=== PATIENT | female | born 1940 | race Caucasian/White ===

== ENCOUNTER 2024-12-28 11:26 | Inpatient (IN) ==
[2024-12-28] MEDS: cefTRIAXone SODIUM 2,000 MG/50 ML BAG IV STA (12:11)
[2024-12-28] MEDS: methylPREDNISolone 125 MG/2 ML VIAL IV STA (12:11)
[2024-12-28] MEDS: ALBUT/IPRATROP 3MG/0.5MG NEB 3 ML VIAL NEB STA (12:11)
[2024-12-28 12:12] LABS: Appearance Urine Clear (Clear); Bacteria Urine Automated None Seen (None Seen); Bilirubin Urine Negative (Negative); Blood Urine Trace (Negative); Cast Urine Automated 0-2 /lpf (0-2); Color Urine Yellow; Epithelial Cell Urine Auto 0-2 /hpf (0-2); Glucose Urine UA Negative (Negative); Ketones Urine Negative (Negative); Leukocyte Esterase Urine Negative (Negative); Nitrite Urine Negative (Negative); Protein Urine Negative (Negative); RBC Urine Automated 0-2 /hpf (0-2); Specific Gravity Urine 1.005 (1.000-1.030); Urobilinogen Urine Negative (Negative); WBC Urine Automated 0-5 /hpf (0-5); pH Urine 6.5 (4.5-7.5)
--- NOTE | 2024-12-28 12:21 | XRay Report ---
XR chest 1V portable HISTORY: 84 years-old Female Dyspnea COMPARISON: 10/16/2024 TECHNIQUE: AP view of the chest FINDINGS: Cardiomediastinal and hilar silhouettes are within normal limits. Moderate right hemidiaphragmatic el evation is progressed from prior. Suggestion of pulmonary neural hypertension. Pulmonary vascular con gestion. No pneumothorax. Right basilar opacities. IMPRESSION: 1. Pulmonary vascular congestion with possible pulmonary arterial hypertension. 2. Progressively worsening right hemidiaphragmatic elevation compared to the 10/16/2024 study with ri ght basilar consolidation/atelectasis. ACT 112: Negative or not required by law. The above report was generated using voice recognition software. It may contain grammatical, syntax o r spelling errors. Electronically signed by: Toby Whitaker M.D. 12/28/2024 12:20 PM
[2024-12-28 12:40] LABS: Basophils # (auto) 0.04 K/uL (0.00-0.20); Basophils % (auto) 0.4 %; Eosinophils # (auto) 0.01 K/uL (0.00-0.50); Eosinophils % (auto) 0.1 %; Hemoglobin 13.7 g/dl (12.0-16.0); Immature Granulocytes # (auto) 0.06 K/uL (0.01-0.20); Immature Granulocytes % (auto) 0.6 %; Lymphocytes # (auto) 0.52 K/uL (1.20-3.40); Lymphocytes % (auto) 5.2 %; Mean Corpuscular Hemoglobin 32.7 pg (25.0-34.0); Mean Corpuscular Hgb Conc 33.4 g/dL (32.0-36.0); Mean Corpuscular Volume 97.9 fL (80.0-100.0); Mean Platelet Volume 10.7 fL (9.4-12.4); Monocytes # (auto) 0.61 K/uL (0.11-0.59); Monocytes % (auto) 6.1 %; Neutrophils # (auto) 8.84 K/uL (1.40-6.50); Neutrophils % (auto) 87.6 %; Platelet Count 207 K/uL (130-400); RDW Coefficient of Variation 12.7 % (11.5-14.5); RDW Standard Deviation 45.6 fL (36.4-46.3); Red Blood Count 4.19 M/uL (4.20-5.40); White Blood Count 10.08 K/ul (4.8-10.8)
--- NOTE | 2024-12-28 12:43 | Emergency Department Note ---
Impression & Plan Respiratory distress, Pneumonia, SOB (shortness of breath), Tachypnea, Influenza A ED Provider Note NAME: CURT MCLAUGHLIN AGE: 84 SEX: F : 1940 ARRIVES VIA: Ambulance INFORMANT: [Patient][ems, nursing] ED PROVIDER(S): [Kan Pelaez MD] CHIEF COMPLAINT: Cough HISTORY OF PRESENT ILLNESS: The patient is an 84-year-old female who resides at a care center. She is a DNR and has Parkinson's. She presents with 7 to 10 days of cough and respiratory symptoms. She was sent for evaluation. Apparently, there is a viral illness running through her care center. The patient complains of cough and some shortness of breath. She denies pain. PMHx/PSHx/Social Hx: See Below PHYSICAL EXAM: GENERAL: Patient is in mild respiratory distress. HEENT: No acute trauma, normocephalic atraumatic, mucous membranes moist, no nasal congestion. NECK: No stridor, no adenopathy, no meningismus, trachea is midline. LUNGS: Coarse of breath sounds heard throughout all lung hawk. Increased respiratory rate, mild respiratory distress. HEART: Unobtainable given the lung sounds. ABDOMEN: Soft, nontender, no peritonitis. EXTREMITIES: No cyanosis, full range of motion of all the joints without pain or difficulty. NEUROLOGIC: Awake, does move all extremities. Extremity shaking seem consistent with her Parkinson's. SKIN: No jaundice, no diaphoresis. DIFFERENTIAL DIAGNOSIS: Bronchitis or pneumonia, CHF, respiratory failure, anemia, MA, among others. EMERGENCY DEPARTMENT PROCEDURES: MEDICAL DECISION MAKING: There is no leukocytosis or worrisome anemia. There is a normal platelet count. No coagulopathy. No renal failure or significant electrolyte abnormality. Lactic acid level is not elevated making severe sepsis unlikely. No worrisome liver enzyme elevation. ECG shows a sinus rhythm, no obvious ST elevation. Cardiac enzyme testing x 1 is not consistent with acute cardiac injury. Urinalysis does not show infection. Respiratory bio fire was positive for influenza A. Chest x-ray shows elevation to the right hemidiaphragm as well as a potential right lower lobe pneumonia versus atelectasis. No CHF. On exam, the patient was in some mild respiratory distress. She was quite tachypneic. She had coarse breath sounds throughout all lung hawk. The patient was aggressively managed given her presentation. She was given a DuoNeb, she received IV Solu-Medrol and IV ceftriaxone. She was given her typical dose of oral carbidopa/levodopa. With the and above interventions, the patient has made improvement. She is less tachypneic and looks more comfortable. The patient has influenza A, she appears to have a small pneumonia. She had presented in respiratory distress. She does require a hospital stay and further pulmonary care. I spoke with the patient and with case management, the on-call hospitalist was consulted. Prior/Outside records/notes reviewed: Today's EMS notes describing her presentation and transport to this hospital. ECG per my interpretation: Indication was shortness of breath. The ECG shows a sinus rhythm with a PVC. The rate is 79. There is diffuse nonspecific ST change. No ST elevation. QTc is 472. Continuous Cardiac Monitoring per my interpretation: An order was placed for continuous cardiac monitoring. The monitor shows a rate of 75 with normal sinus rhythm. Imaging/x-ray results per my interpretation: Chest x-ray shows some coarse parenchyma throughout all lung hawk, there is an elevation of the right hemidiaphragm with potential atelectasis or pneumonia at the right base. Chronic Medical/Social conditions affecting care: Advanced age, DNR status. Care/Management discussed with: Case management, the on-call hospitalist. Level of care consideration(s): After review of the information above and other included data: --I believe the patient requires escalation of care to admission Critical Care Note: I have personally spent 42 minutes of critical care time in the direct management of this patient. This includes bedside care, interpretation of diagnostic studies, and testing, discussion with consultants, patient, and family members, and other required patient management activities. This 42 minutes is in excess of all separately billable procedures. DISPOSITION: Admission Past Med/Surg History Problem List (Updated 12/28/24 @ 18:11 by Kan Pelaez MD) Influenza A (Acute) Tachypnea (Acute) SOB (shortness of breath) (Acute) Pneumonia (Acute) Respiratory distress (Acute) Pneumonia Influenza Parkinsons disease HTN (hypertension) Hyperlipidemia Tremor Health care maintenance Balance disorder Gait difficulty Hallucinations Mild cognitive impairment Dementia Neurocognitive disorder Medical History Numbness and tingling in right hand Parkinsonism Adjustment disorder Glaucoma Depression Right arm pain Memory changes Surgical History No history of previous surgery Family History Sister Breast cancer Father Myocardial infarction Denies family history of Ovarian cancer Prostate cancer Colorectal cancer Social History Smoking Status: Never smoker Second Hand Exposure: Yes; Do You Dip or Chew Tobacco: No; Hx Alcohol Use: Yes Hx Substance Use: No Preferred Language: Bahamian Visual Impairment: Partially Limited Hearing Ability: Normal Beliefs That Will Affect Care: None marital status: / Current Living Situation: Alone current occupational status: retired How many Children do You have: 3 How many Children do You have Comment: 3 daughters Feels Safe at Home: Yes Childhood Exposure to Second-Hand Smoke: Yes Diet: regular during the past year weight has: remained stable Dental Care, Regularly: No Physical Activity Frequency: Does not Exercise Seatbelt Use: always Sunscreen Use: Yes Allergies Allergies Allergy/AdvReac Type Severity Reaction Status Date / Time No Known Allergies Allergy Verified 10/16/24 14:24 Home Meds Home Medications Medication Instructions Recorded Confirmed aspirin 81 mg chewable tablet 81 mg PO DAILY 02/01/21 12/28/24 brimonidine 0.2 % eye drops 1 drp ophthalmic (eye) BID 02/01/21 12/28/24 calcium 600 mg (as carbonate)-vit 1 tab PO DAILY 02/01/21 12/28/24 D3 10 mcg (400 unit) chewable tablet (Calcium 600 with Vitamin D3) melatonin 3 mg capsule 3 mg PO HS PRN Sleep 09/12/24 12/28/24 loperamide 2 mg tablet (Imodium 2 mg PO DAILY PRN Diarrhea 10/01/24 12/28/24 A-D) carbidopa 25 mg-levodopa 100 mg 1 tab PO UD 12/28/24 12/28/24 tablet latanoprost 0.005 % eye drops 0 drp OPB HS 12/28/24 12/28/24 travoprost 0.004 % eye drops 0 drp ophthalmic (eye) QPM 12/28/24 12/28/24 (Travatan Z) Previous Rx's Medication Instructions Recorded multivitamin 1 tab PO DAILY #30 tabs 06/07/23 memantine 5 mg tablet 5 mg PO BID #60 tabs 10/16/24 potassium gluconate 550 mg (90 mg) 550 mg PO DAILY #90 tabs 10/16/24 tablet fluoxetine 20 mg tablet 30 mg (1.5 x 20 mg) PO DAILY #135 11/27/24 tabs simvastatin 20 mg tablet 20 mg PO DAILY #90 tabs 11/27/24 timolol maleate 0.5 % eye drops 1 drp OPB HS #15 mL 12/06/24 Results & Data (ED) Vital Signs Vital Signs - 24 hr 12/28/24 11:41 12/28/24 11:41 12/28/24 12:31 Temperature 36.7 C Temperature Source Oral Pulse Rate 75 72 Pulse Rate [Apical] 75 Pulse Rhythm Regular Pulse Rhythm [Apical] Regular Pulse Strength Normal Pulse Strength [Apical] Normal Respiratory Rate 30 H 30 H 22 Respiratory Effort / Characteristics Spontaneous Labored Labored Respiratory Depth Shallow Shallow Respiratory Pattern Tachypnea Tachypnea Blood Pressure 175/87 H 162/77 H Blood Pressure [Left Arm] 175/87 H Blood Pressure Mean 116 119 Blood Pressure Mean [Left Arm] 116 Blood Pressure Position [Left Arm] Sitting Pulse Oximetry 93 94 92 Oxygen Delivery Method Room Air Room Air Oxygen Flow Rate Sepsis Recent Fever Within 48 Hours No Sepsis New/Unexplained Change in Mental Status No Sepsis Action Taken by Nursing No Action Required 12/28/24 13:31 12/28/24 14:01 12/28/24 14:30 Temperature Temperature Source Pulse Rate 69 75 69 Pulse Rate [Apical] Pulse Rhythm Pulse Rhythm [Apical] Pulse Strength Pulse Strength [Apical] Respiratory Rate 24 23 22 Respiratory Effort / Characteristics Respiratory Depth Respiratory Pattern Blood Pressure 150/76 H 167/76 H 153/88 H Blood Pressure [Left Arm] Blood Pressure Mean 108 90 114 Blood Pressure Mean [Left Arm] Blood Pressure Position [Left Arm] Pulse Oximetry 94 93 94 Oxygen Delivery Method Oxygen Flow Rate 2 Sepsis Recent Fever Within 48 Hours Sepsis New/Unexplained Change in Mental Status Sepsis Action Taken by Correction Medications Current Medication List: was personally reviewed by me Laboratory Data Attestation: I reviewed the patient's lab results. 12/28/24 12:11 12/28/24 12:11 Lab Results 12/28/24 12/28/2425 Range/Units 11:33 11:55 12:11 WBC 10.08 (4.8-10.8) K/ul RBC 4.19 L (4.20-5.40) M/uL Hgb 13.7 (12.0-16.0) g/dl Hct 41.0 (37.0-47.0) % MCV 97.9 (80.0-100.0) fL MCH 32.7 (25.0-34.0) pg MCHC 33.4 (32.0-36.0) g/dL RDW Std Deviation 45.6 (36.4-46.3) fL RDW Coeff of Tuan 12.7 (11.5-14.5) % Plt Count 207 (130-400) K/uL MPV 10.7 (9.4-12.4) fL Immature Gran % (Auto) 0.6 % Neut % (Auto) 87.6 % Lymph % (Auto) 5.2 % [place] % (Auto) 6.1 % Eos % (Auto) 0.1 % Baso % (Auto) 0.4 % Neut # (Auto) 8.84 H (1.40-6.50) K/uL Lymph # (Auto) 0.52 L (1.20-3.40) K/uL [place] # (Auto) 0.61 H (0.11-0.59) K/uL Eos # (Auto) 0.01 (0.00-0.50) K/uL Baso # (Auto) 0.04 (0.00-0.20) K/uL Immature Gran # (Auto) 0.06 (0.01-0.20) K/uL PT 10.9 (9.0-12.0) Seconds INR 1.0 (0.9-1.1) APTT 27 (21-31) Seconds PTT Ratio 1.0 Sodium 139 (136-145) mmol/L Potassium 4.1 (3.5-5.1) mmol/L Chloride 103 (98-107) mmol/L Carbon Dioxide 29 (21-32) mmol/L Anion Gap 7 (3-11) BUN 15 (6-23) mg/dl Creatinine 0.55 L (0.6-1.2) mg/dl Est Cr Clr Drug Dosing 62.4 ml/min eGFR 91.46 BUN/Creatinine Ratio 27.3 H (10-20) Glucose 99 (70-99(Fasting)) mg/dl Lactate 1.6 (0.4-2.0) mmol/L Calcium 9.9 (8.6-10.3) mg/dl Magnesium 2.0 (1.7-2.4) mg/dl Total Bilirubin 1.2 H (0.2-1.0) mg/dl AST 20 (13-39) U/L ALT 9 (7-52) U/L Alkaline Phosphatase 83 (34-104) U/L Troponin I High Sens 7.6 (0-14) pg/ml Total Protein 7.5 (6.0-8.3) gm/dl Albumin 4.1 (3.4-5.0) gm/dl Globulin 3.4 (2.5-4.0) gm/dl Albumin/Globulin Ratio 1.2 (0.9-2) Procalcitonin (0-0.5) ng/ml Urine Color Yellow Urine Appearance Clear (Clear) Urine pH 6.5 (4.5-7.5) Ur Specific [place] 1.005 (1.000-1.030) Urine Protein Negative (Negative) Urine Glucose (UA) Negative (Negative) Urine Ketones Negative (Negative) Urine Blood Trace H (Negative) Urine Nitrite Negative (Negative) Urine Bilirubin Negative (Negative) Urine Urobilinogen Negative (Negative) Ur Leukocyte Esterase Negative (Negative) Urine WBC (Auto) 0-5 (0-5) /hpf Urine RBC (Auto) 0-2 (0-2) /hpf U Hyaline Cast (Auto) 0-2 (0-2) /lpf U Epithel Cells (Auto) 0-2 (0-2) /hpf Urine Bacteria (Auto) None Seen (None Seen) Adenovirus (PCR) Not Detected (NotDetected) B. pertussis DNA (PCR) Not Detected (NotDetected) B.parapertussis DNA PCR Not Detected (NotDetected) C. pneumoniae DNA (PCR) Not Detected (NotDetected) Coronavirus OC43 (PCR) Not Detected (NotDetected) Coronavirus HKU1 (PCR) Not Detected (NotDetected) Coronavirus 229E (PCR) Not Detected (NotDetected) SARS-CoV-2 (PCR) Not Detected (NotDetected) Coronavirus NL63 (PCR) Not Detected (NotDetected) Human Metapneumovir PCR Not Detected (NotDetected) Influenza A (H3) PCR DETECTED A (NotDetected) Influenza Type B (PCR) Not Detected (NotDetected) M. pneumoniae (PCR) Not Detected (NotDetected) Parainfluenza 1 (PCR) Not Detected (NotDetected) Parainfluenza 2 (PCR) Not Detected (NotDetected) Parainfluenza 3 (PCR) Not Detected (NotDetected) Parainfluenza 4 (PCR) Not Detected (NotDetected) RSV (PCR) Not Detected (NotDetected) Entero/Rhino (PCR) Not Detected (NotDetected) 12/28/24 Range/Units 12:13 WBC (4.8-10.8) K/ul RBC (4.20-5.40) M/uL Hgb (12.0-16.0) g/dl Hct (37.0-47.0) % MCV (80.0-100.0) fL MCH (25.0-34.0) pg MCHC (32.0-36.0) g/dL RDW Std Deviation (36.4-46.3) fL RDW Coeff of Tuan (11.5-14.5) % Plt Count (130-400) K/uL MPV (9.4-12.4) fL Immature Gran % (Auto) % Neut % (Auto) % Lymph % (Auto) % [place] % (Auto) % Eos % (Auto) % Baso % (Auto) % Neut # (Auto) (1.40-6.50) K/uL Lymph # (Auto) (1.20-3.40) K/uL [place] # (Auto) (0.11-0.59) K/uL Eos # (Auto) (0.00-0.50) K/uL Baso # (Auto) (0.00-0.20) K/uL Immature Gran # (Auto) (0.01-0.20) K/uL PT (9.0-12.0) Seconds INR (0.9-1.1) APTT (21-31) Seconds PTT Ratio Sodium (136-145) mmol/L Potassium (3.5-5.1) mmol/L Chloride (98-107) mmol/L Carbon Dioxide (21-32) mmol/L Anion Gap (3-11) BUN (6-23) mg/dl Creatinine (0.6-1.2) mg/dl Est Cr Clr Drug Dosing ml/min eGFR BUN/Creatinine Ratio (10-20) Glucose (70-99(Fasting)) mg/dl Lactate (0.4-2.0) mmol/L Calcium (8.6-10.3) mg/dl Magnesium (1.7-2.4) mg/dl Total Bilirubin (0.2-1.0) mg/dl AST (13-39) U/L ALT (7-52) U/L Alkaline Phosphatase (34-104) U/L Troponin I High Sens (0-14) pg/ml Total Protein (6.0-8.3) gm/dl Albumin (3.4-5.0) gm/dl Globulin (2.5-4.0) gm/dl Albumin/Globulin Ratio (0.9-2) Procalcitonin 0.08 (0-0.5) ng/ml Urine Color Urine Appearance (Clear) Urine pH (4.5-7.5) Ur Specific [place] (1.000-1.030) Urine Protein (Negative) Urine Glucose (UA) (Negative) Urine Ketones (Negative) Urine Blood (Negative) Urine Nitrite (Negative) Urine Bilirubin (Negative) Urine Urobilinogen (Negative) Ur Leukocyte Esterase (Negative) Urine WBC (Auto) (0-5) /hpf Urine RBC (Auto) (0-2) /hpf U Hyaline Cast (Auto) (0-2) /lpf U Epithel Cells (Auto) (0-2) /hpf Urine Bacteria (Auto) (None Seen) Adenovirus (PCR) (NotDetected) B. pertussis DNA (PCR) (NotDetected) B.parapertussis DNA PCR (NotDetected) C. pneumoniae DNA (PCR) (NotDetected) Coronavirus OC43 (PCR) (NotDetected) Coronavirus HKU1 (PCR) (NotDetected) Coronavirus 229E (PCR) (NotDetected) SARS-CoV-2 (PCR) (NotDetected) Coronavirus NL63 (PCR) (NotDetected) Human Metapneumovir PCR (NotDetected) Influenza A (H3) PCR (NotDetected) Influenza Type B (PCR) (NotDetected) M. pneumoniae (PCR) (NotDetected) Parainfluenza 1 (PCR) (NotDetected) Parainfluenza 2 (PCR) (NotDetected) Parainfluenza 3 (PCR) (NotDetected) Parainfluenza 4 (PCR) (NotDetected) RSV (PCR) (NotDetected) Entero/Rhino (PCR) (NotDetected) Administered Medications Discontinued Medications Albuterol (Albut/Ipratrop 3mg/0.5mg Neb 3 Ml Vial) 3 ml NEB NOW STA; Protocol Stop: 12/28/24 11:59 Last Admin: 12/28/24 12:11 Dose: 3 ml Documented By: QGV Carbidopa/Levodopa (Carbidopa/Levodopa 25/100mg Tab) 1 tab PO NOW STA Stop: 12/28/24 13:24 Last Admin: 12/28/24 13:37 Dose: 1 tab Documented By: QGV Ceftriaxone Sodium (Rocephin) 2,000 mg in 50 mls @ 100 mls/hr IV NOW STA Stop: 12/28/24 12:27 Last Infusion: 12/28/24 13:03 Dose: Infused Documented By: Admin: 12/28/24 12:11 Dose: 100 mls/hr Documented By: QGV Doxycycline Hyclate 100 mg/ (Dextrose) 100 mls @ 50 mls/hr IV NOW STA Stop: 12/28/24 16:39 Last Infusion: 12/28/24 17:34 Dose: Infused Documented By: Admin: 12/28/24 15:34 Dose: 50 mls/hr Documented By: QGV Methylprednisolone (Methylprednisolone 125 Mg/2 Ml Vial) 60 mg IV NOW STA Stop: 12/28/24 11:59 Last Admin: 12/28/24 12:11 Dose: 60 mg Documented By: QGV Oseltamivir Phosphate (Oseltamivir Phosphate 75 Mg Cap) 75 mg PO NOW STA; Protocol Stop: 12/28/24 14:41 Last Admin: 12/28/24 15:34 Dose: 75 mg Documented By: QGV Imaging Data Radiologist's Impression: Chest X-Ray 12/28/24 11:41 XR chest 1V portable HISTORY: 84 years-old Female Dyspnea COMPARISON: 10/16/2024 TECHNIQUE: AP view of the chest FINDINGS: Cardiomediastinal and hilar silhouettes are within normal limits. Moderate right hemidiaphragmatic elevation is progressed from prior. Suggestion of pulmonary neural hypertension. Pulmonary vascular congestion. No pneumothorax. Right basilar opacities. IMPRESSION: 1. Pulmonary vascular congestion with possible pulmonary arterial hypertension. 2. Progressively worsening right hemidiaphragmatic elevation compared to the 10/16/2024 study with right basilar consolidation/atelectasis. ACT 112: Negative or not required by law. The above report was generated using voice recognition software. It may contain grammatical, syntax or spelling errors. Electronically signed by: Toby Whitaker M.D. 12/28/2024 12:20 PM Discharge Plan Visit Data Chief Complaint: Cough Stated Complaint: COUGH, SHORT OF BREATH ED Provider: Kan Pelaez Discharge Problem: Respiratory distress, Pneumonia, SOB (shortness of breath), Tachypnea, Influenza A Patient Disposition: Admitted As Inpatient Condition: Serious Discharge Instructions Interventions: ED Discharge Assessment Last Done: 12/28/24 15:46 Discharge Problem: Pneumonia Qualifiers: Pneumonia type: due to unspecified organism Laterality: right Lung location: l ower lobe of lung Qualified Code(s): J18.9 - Pneumonia, unspecified organism
[2024-12-28 12:46] LABS: Albumin Globulin Ratio 1.2 (0.9-2); Albumin Level 4.1 gm/dl (3.4-5.0); BUN Creatinine Ratio 27.3 (10-20); Bilirubin,Total 1.2 mg/dl (0.2-1.0); Calcium 9.9 mg/dl (8.6-10.3); Creatinine Clr Calc Pharmacy 62.4 ml/min; Globulin 3.4 gm/dl (2.5-4.0); Potassium 4.1 mmol/L (3.5-5.1); Total Protein 7.5 gm/dl (6.0-8.3)
[2024-12-28 12:53] LABS: Troponin I High Sensitivity 7.6 pg/ml (0-14)
[2024-12-28 12:56] LABS: Partial Thromboplastin Time 27 Seconds (21-31); Prothrombin Time 10.9 Seconds (9.0-12.0)
[2024-12-28 13:03] LABS: Adenovirus PCR Not Detected (NotDetected); Bordetella parapertussis PCR Not Detected (NotDetected); Bordetella pertussis PCR Not Detected (NotDetected); Chlamydia pneumoniae PCR Not Detected (NotDetected); Coronavirus 229E PCR Not Detected (NotDetected); Coronavirus CoV-2 (COVID19)PCR Not Detected (NotDetected); Coronavirus HKU1 PCR Not Detected (NotDetected); Coronavirus NL63 PCR Not Detected (NotDetected); Coronavirus OC43PCR Not Detected (NotDetected); Human Metapneumovirus PCR Not Detected (NotDetected); Influenza A (H3) PCR DETECTED (NotDetected); Influenza B PCR Not Detected (NotDetected); Mycoplasma pneumoniae PCR Not Detected (NotDetected); Parainfluenza Virus 1 PCR Not Detected (NotDetected); Parainfluenza Virus 2 PCR Not Detected (NotDetected); Parainfluenza Virus 3 PCR Not Detected (NotDetected); Parainfluenza Virus 4 PCR Not Detected (NotDetected); Respiratory Syncytial VirusPCR Not Detected (NotDetected); Rhinovirus/Enterovirus PCR Not Detected (NotDetected)
[2024-12-28] MEDS: CARBIDOPA/LEVODOPA 25/100MG TAB PO STA (13:37)
[2024-12-28] MEDS ORDERED: ACETAMINOPHEN 325 MG TAB PO PRN (14:40)
[2024-12-28] MEDS ORDERED: ONDANSETRON INJ 2 MG/ML 2 ML VIAL IV PRN (14:40)
[2024-12-28] MEDS ORDERED: POLYETHYLENE (MIRALAX) 17 GM PACK PO PRN (14:40)
--- NOTE | 2024-12-28 14:55 | History & Physical Report ---
Date of Service December 28, 2024 Assessment & Plan (1) Influenza: (2) Pneumonia: (3) Parkinsons disease: Plan This is an 84 year old female with past medical history of Parkinson's disease, dementia, HTN, gait difficulty who presented to the ED from [facility] on 12/28 with chief complaint of cough. #Flu A/pneumonia Biofire + for influenza A CXR concerning for pneumonia EKG w/ normal sinus rhythm CBC w/o leukocytosis. BMP w/ stable renal function and electrolytes Urinalysis negative Procalcitonin 0.08, BC pending s/p IV Rocephin in ED - continue upon admission, add Doxycycline s/p Methylprednisolone x 1 Hypertonic saline nebs BID Tamiflu BID on 2L of oxygen at time of admission - wean when possible back to room air. Isolation precautions #Parkinson's disease Continue carbidopa 25mg levodopa 100mg Fall/Aspiration precautions. PT/OT consult Chronic conditions: Mental health: Fluoxetine HLD: statin Dementia: Memantine DVT prophylaxis: Lovenox Code: DNR/DNI Case discussed w/ Dr. Hays at time of admission Daughter called to discuss plan of care at time of admission. History of Present Illness Primary Care Provider: Yasmine Conley MD This is an 84 year old female with past medical history of Parkinson's disease, dementia, HTN, gait difficulty who presented to the ED from [facility] on 12/28 with chief complaint of cough. Patient seen and examined at bedside. Patient is poor historian at baseline. Reportedly patient was experiencing a cough over the last 7-10 days. Also per documentation there is a flu outbreak at her home. At time of encounter she was resting comfortable in bed. Due to Parkinson's, pulse ox was difficult to obtain in ED but patient was ~ 88% on room air at time of my encounter. She was given 2L of oxygen with improvement to 93%. She reports she cannot take a deep breath. While in the ED, respiratory biofire + for Flu A. CXR w/ concerning findings for pneumonia per personal review. Rocephin, Methylprednisolone, Sinemet, and Duoneb administered in ED. CBC w/o leukocytosis. Procalcitonin and BC pending. BMP w/ stable electrolytes and kidney function. Per chart, patient is a DNR/DNI. Allergies Allergy/AdvReac Type Severity Reaction Status Date / Time No Known Allergies Allergy Verified 10/16/24 14:24 Home Medications Medication Instructions Recorded Confirmed Type aspirin 81 mg chewable tablet 81 mg PO DAILY 02/01/21 12/28/24 History brimonidine 0.2 % eye drops 1 drp ophthalmic (eye) BID 02/01/21 12/28/24 History calcium 600 mg (as carbonate)-vit 1 tab PO DAILY 02/01/21 12/28/24 History D3 10 mcg (400 unit) chewable tablet (Calcium 600 with Vitamin D3) multivitamin 1 tab PO DAILY #30 tabs 06/07/23 12/28/24 Rx melatonin 3 mg capsule 3 mg PO HS PRN Sleep 09/12/24 12/28/24 History loperamide 2 mg tablet (Imodium 2 mg PO DAILY PRN Diarrhea 10/01/24 12/28/24 History A-D) memantine 5 mg tablet 5 mg PO BID #60 tabs 10/16/24 12/28/24 Rx potassium gluconate 550 mg (90 mg) 550 mg PO DAILY #90 tabs 10/16/24 12/28/24 Rx tablet fluoxetine 20 mg tablet 30 mg (1.5 x 20 mg) PO DAILY #135 11/27/24 12/28/24 Rx tabs simvastatin 20 mg tablet 20 mg PO DAILY #90 tabs 11/27/24 12/28/24 Rx timolol maleate 0.5 % eye drops 1 drp OPB HS #15 mL 12/06/24 12/28/24 Rx carbidopa 25 mg-levodopa 100 mg 1 tab PO UD 12/28/24 12/28/24 History tablet latanoprost 0.005 % eye drops 0 drp OPB HS 12/28/24 12/28/24 History travoprost 0.004 % eye drops 0 drp ophthalmic (eye) QPM 12/28/24 12/28/24 History (Travatan Z) amoxicillin 875 mg-potassium 1 tab PO BID #4 tabs 01/01/25 Rx clavulanate 125 mg tablet benzonatate 100 mg capsule 100 mg PO BID PRN cough #14 caps 01/01/25 Rx doxycycline hyclate 100 mg tablet 100 mg PO BID #4 tabs 01/01/25 Rx Past Med/Surg History Problem List (Updated 01/01/25 @ 09:04 by Adelina Blanton PA-C) Influenza A (Acute) Tachypnea (Acute) SOB (shortness of breath) (Acute) Pneumonia (Acute) Respiratory distress (Acute) Pneumonia Influenza Parkinsons disease HTN (hypertension) Hyperlipidemia Tremor Health care maintenance Balance disorder Gait difficulty Hallucinations Mild cognitive impairment Dementia Neurocognitive disorder Medical History Numbness and tingling in right hand Parkinsonism Adjustment disorder Glaucoma Depression Right arm pain Memory changes Surgical History No history of previous surgery Family History Sister Breast cancer Father Myocardial infarction Denies family history of Ovarian cancer Prostate cancer Colorectal cancer Social History Smoking Status: Never smoker Second Hand Exposure: Yes; Do You Dip or Chew Tobacco: No; Hx Alcohol Use: No Hx Substance Use: No Preferred Language: Italian Communication Ability: Effective Visual Impairment: Partially Limited Hearing Ability: Normal Rubber Mixer Required: No Beliefs That Will Affect Care: None marital status: / Current Living Situation: Personal Care Facility current occupational status: retired How many Children do You have: 3 How many Children do You have Comment: 3 daughters Feels Safe at Home: Yes Childhood Exposure to Second-Hand Smoke: Yes Diet: regular during the past year weight has: remained stable Dental Care, Regularly: No Physical Activity Frequency: Does not Exercise Seatbelt Use: always Sunscreen Use: Yes Assistive Devices: Glasses and Walker Physical Exam Constitutional: well developed Eyes: PERRL, conjunctivae normal, anicteric sclerae Respiratory: coarse breath sounds, diminished at b/l lung bases Cardiovascular: RR. no edema Skin: no rashes, warm and dry Neurologic: tremors present. moves all extremities Results & Data Results & Data Vital Signs (Past 12 Hours) Vital Signs Temp Pulse Pulse Resp BP BP Pulse Ox 12/28/24 11:41 75 30 H 175/87 H 94 12/28/24 11:41 36.7 C 75 30 H 175/87 H 93 O2 Del Method 12/28/24 11:41 Room Air 12/28/24 11:41 Room Air Code Status & VTE Plan VTE Prophylaxis Plan VTE Prophylaxis will be ordered: Yes Supervising Physician Co-Signing Physician Notes I personally saw and examined the patient. I independently reviewed the labs, EKG, imaging, problem list, medication list, past medical history and family history. I verified all wilson points and agree with Julia Sawant PA-C with the following exceptions and/or additions: 84 year old female presents to the ER with non productive cough and generalized illness for last 7-10 days. O/E Bilateral rhonchi throughout, HS RRR, no pedal edema A/P Influenza with superimposed pneumonia - tamiflu, bacterial pneumonia based on CXR, Ceftriaxone + doxycycline PG Care Time/CCT Total # of Minutes Spent Total Time Spent with Patient: Total time spent is greater than 50% in coordination of care (as documented) at patient's floor/unit and/or counseling patient: Coding Level of Care Code 49995 INT INP/OBS CARE 2/55MIN Diagnoses Influenza J11.1 Pneumonia J18.9 Parkinsons disease G20
[2024-12-28] MEDS: DOXYCYCLINE HYCLATE 100 MG in DEXTROSE 5% MINI-B 100 ML IV STA (15:34)
[2024-12-28] MEDS: OSELTAMIVIR PHOSPHATE 75 MG CAP PO STA (15:34)
[2024-12-28] MEDS ORDERED: LOPERAMIDE HCL 2 MG CAP PO PRN (16:54)
[2024-12-28] MEDS ORDERED: MELATONIN 3 MG TAB PO PRN (16:54)
[2024-12-28] MEDS: BRIMONIDINE TARTRATE 0.2% 5ML OP SCH (20:16)
[2024-12-28] MEDS: BENZONATATE 100 MG CAPSULE PO PRN (20:16)
[2024-12-28] MEDS: TIMOLOL MALEATE 0.5% OP SOLN 5 ML BTL OP SCH (20:16)
[2024-12-28] MEDS: CARBIDOPA/LEVODOPA 25/100MG TAB PO SCH (20:16)
[2024-12-28] MEDS: MEMANTINE HCL 5 MG TAB PO SCH (20:17)
[2024-12-28] MEDS: LATANOPROST 0.005% OP SOLN 2.5 ML BTL OPB SCH (20:17)
[2024-12-28] MEDS: ENOXAPARIN INJ 40 MG/0.4 ML SYR SQ SCH (20:17)
[2024-12-28] MEDS: SODIUM CHLOR 7% 4 ML NEB NEB SCH (20:52)
[2024-12-28] MEDS ORDERED: TRAVOPROST Z 0.004% OPH SOLN 2.5 ML BTL OP SCH (21:00)
[2024-12-28] MEDS: guaiFENesin 600 MG TABCR PO PRN (21:13)
[2024-12-28] MEDS: OSELTAMIVIR PHOSPHATE 75 MG CAP PO SCH (22:45)
[2024-12-28] MEDS: guaiFENesin 600 MG TABCR PO ONE (22:46)
[2024-12-29] MEDS: ALBUT/IPRATROP 3MG/0.5MG NEB 3 ML VIAL NEB SCH (01:02)
[2024-12-29] MEDS: DOXYCYCLINE HYCLATE 100 MG in DEXTROSE 5% MINI-B 100 ML IV SCH (05:27)
--- NOTE | 2024-12-29 07:44 | Hospitalist Progress Note ---
Date of Service December 29, 2024 Assessment & Plan (1) Influenza: (2) Pneumonia: (3) Parkinsons disease: Plan This is an 84 year old female with past medical history of Parkinson's disease, dementia, HTN, gait difficulty who presented to the ED from [facility] on 12/28 with chief complaint of cough. +Influenza A on viral testing. No leukocytosis on admission but notable WBC was 10K w/ LEFT shift on CBC. Procal 0.08. EKG w/ NSR, Given Ceftriaxone, Methylprednisolone in ER and admission for Flu/PNA given CXR w/ concerns for RIGHT basilar consolidation/atelectasis. On 2L NC at admission to maintain sats #Flu A/pneumonia Continue Ceftriaxone/Doxy. Tamiflu BID Isolation precautions WBC 10k--> 8.1k. Afebrile Blood cultures pending, f/u DuoNeb q6h scheduled (monitor to change to prn) Added/continue incentive spirometer, flutter valve, mucinex BID, hypertonic saline, vibration therapy No ongoing steroids for now, monitor Repeat C2V given prior w/ pulmonary vascular congestion and O2 requirement to 2.5L-3L for today and +JVD on exam with rales. Checked BNP and ELEVATED to 308/no prior ECHO but +murmur on exam (no LE pitting edema, no hx HF reported) ECHO added, f/u to eval for valvular disease/decreased EF Lasix 40mg PO x 1 Monitor I&O, weight Supplemental O2 to maintain sats PT/OT consults pending DVT proph: Lovenox SQ Monitor for 2 step prior to dc #Pulmonary vascular congestion/hypoxia/Volume overload suspected on cxr, no hx CHF. ?mucus plugging vs CHF. BNP checked/elevated and lasix PO provided and titrate O2 as able. Monitor I&O/weights and checking ECHO given no prior for comparison #Parkinson's disease Continue carbidopa 25mg levodopa 100mg . Memantine continued for hx dementia, fluoxetine for mental health Fall/Aspiration precautions, therapy consulted as above Chronic conditions: HLD: statin continued. Notable UA w/ trace blood but no RBC --> on statin, CK checked/NOT elevated at 74. Will need f/u UA at dc DVT prophylaxis: Lovenox SQ continued Dispo: continued inpatient stay, lasix PO/monitor response/additional dosing as needed pending response. Remains on abx and supplemental O2 as needed. PT/OT consulted and will plan to update family in AM/sooner if needed (No one in room during encounter) Admission and Anticipated Discharge Date Admission Date: December 28, 2024 Supervising Physician Co-Signing Physician Notes The patient was not seen by me. The chart was reviewed. Case discussed with SIS Post. Agree with assessment and plan Subjective Eval this morning, working with therapy, ambulating with walker back from bathroom, on 3L NC. Reports having been better, but not as bad as admission. No LE edema or gut edema but does have +JVD on exam and rales/wheezing and discussed CXR appears w/ fluid and hopefully improvement with diuretics but will monitor response. Nursing alerted for purewick as needed w/ diuretics, will start with lasix 40mg Does need assistance with meals at present, reports typically does her own thing at baseline. Tremor w/ her parkisons, reports "trying to cooperate". No CP/fever at this time, reports appetite is FAIR. Questions/concerns addressed at this time. Physical Exam 2 Physical Exam: General: 84yo female ambulating back from bathroom with therapy with a walker, NAD, O2 2-3L in place, shuffled gait c/w hx parkisons HEENT: head atraumatic, normocephalic, mmm, trachea midline, +JVD upright in chair Resp: coarse breath sounds throughout, expiratory wheezing, diminished in the bases R>L, on 2-3L NC this morning CV: RRR, +systolic murmur, no pitting edema, pulses present, calves nontender GI: +BS, soft/NT : no rosas MSK/Neuro: no slurred speech/facial droop, cooperative with exam, moves all extremities, ambulating from the bathroom to the chair w/ slow/steady but shuffled gait, baseline tremor Psych: Alert to person/place/time, intermittent confusion/hx dementia at baseline Results & Data Results & Data Vital Signs (Past 12 Hours) Vital Signs Temp Pulse Pulse Pulse Resp BP BP 12/29/24 07:35 66 19 12/29/24 07:27 37.1 C 69 18 177/94 H 12/29/24 07:13 64 12/29/24 06:15 12/29/24 04:00 12/29/24 03:14 37.1 C 65 18 163/81 H 12/29/24 02:13 12/29/24 01:03 12/29/24 01:03 68 18 12/28/24 23:22 37.1 C 67 22 167/81 H 12/28/24 22:51 12/28/24 21:45 69 12/28/24 20:53 77 18 12/28/24 20:00 Pulse Ox Pulse Ox O2 Del Method O2 Del Method O2 Flow Rate O2 Flow Rate 12/29/24 07:35 96 Nasal Cannula 2.5 12/29/24 07:27 95 Nasal Cannula 2 12/29/24 07:13 12/29/24 06:15 94 Nasal Cannula 2 12/29/24 04:00 94 Nasal Cannula 2 12/29/24 03:14 95 Nasal Cannula 2 12/29/24 02:13 95 Nasal Cannula 2 12/29/24 01:03 91 Nasal Cannula 2 12/29/24 01:03 92 Nasal Cannula 2 12/28/24 23:22 95 Nasal Cannula 2 12/28/24 22:51 93 Nasal Cannula 2 12/28/24 21:45 12/28/24 20:53 91 Nasal Cannula 2 12/28/24 20:00 Nasal Cannula Laboratory Results 12/29/24 06:58 12/29/24 06:58 BNP 308 CK 74 Mag 2.1 Diagnostic Findings Chest X-Ray 12/29/24 07:43 XR chest 2V PA/lateral HISTORY: 84 years-old Female f/u pulmonary congestion, hypoxia, O2 requirement COMPARISON: Chest 12/28/2024 TECHNIQUE: AP and lateral views of the chest FINDINGS: Cardiac silhouette is enlarged. Unchanged right hemidiaphragmatic elevation. Possible pulmonary arterial hypertension. Pulmonary vascular congestion. Mild bibasilar densities. Trace pleural effusions. No pneumothorax. Gaseous distention of the large bowel. Bones appear grossly intact. IMPRESSION: 1. Cardiomegaly with pulmonary vascular congestion. 2. Unchanged right hemidiaphragmatic elevation with probable trace pleural effusions and bibasilar densities/atelectasis. ACT 112: Negative or not required by law. The above report was generated using voice recognition software. It may contain grammatical, syntax or spelling errors. Electronically signed by: Toby Whitaker M.D. 12/29/2024 9:33 AM PG Care Time/CCT Total # of Minutes Spent Total Time Spent with Patient: Total time spent is greater than 50% in coordination of care (as documented) at patient's floor/unit and/or counseling patient: Coding Level of Care Code 72534 SUB INP/OBS CARE 3/50MIN Diagnoses Influenza J11.1 Pneumonia J18.9 Parkinsons disease G20
[2024-12-29 08:02] LABS: Hematocrit (blood only) 41.8 % (37.0-47.0); Mean Corpuscular Hemoglobin 32.6 pg (25.0-34.0); Mean Corpuscular Hgb Conc 33.5 g/dL (32.0-36.0); Mean Corpuscular Volume 97.4 fL (80.0-100.0); Mean Platelet Volume 11.1 fL (9.4-12.4); Platelet Count 203 K/uL (130-400); RDW Coefficient of Variation 12.6 % (11.5-14.5); RDW Standard Deviation 45.2 fL (36.4-46.3); Red Blood Count 4.29 M/uL (4.20-5.40); White Blood Count 8.16 K/ul (4.8-10.8)
[2024-12-29 08:17] LABS: BUN Creatinine Ratio 35.2 (10-20); Calcium 9.8 mg/dl (8.6-10.3); Creatinine Clr Calc Pharmacy 63.5 ml/min; Potassium 3.9 mmol/L (3.5-5.1)
[2024-12-29] MEDS: guaiFENesin 600 MG TABCR PO SCH (08:20)
[2024-12-29] MEDS: FLUoxetine HCL 10 MG CAP PO SCH (08:21)
[2024-12-29] MEDS: CARBIDOPA/LEVODOPA 25/100MG TAB PO SCH (08:24)
[2024-12-29] MEDS: ASPIRIN 81 MG CHEW PO SCH (08:26)
[2024-12-29] MEDS: SIMVASTATIN 20 MG TAB PO SCH (08:28)
[2024-12-29 08:46] LABS: Magnesium 2.1 mg/dl (1.7-2.4)
--- NOTE | 2024-12-29 09:34 | XRay Report ---
XR chest 2V PA/lateral HISTORY: 84 years-old Female f/u pulmonary congestion, hypoxia, O2 requirement COMPARISON: Chest 12/28/2024 TECHNIQUE: AP and lateral views of the chest FINDINGS: Cardiac silhouette is enlarged. Unchanged right hemidiaphragmatic elevation. Possible pulmonary arter ial hypertension. Pulmonary vascular congestion. Mild bibasilar densities. Trace pleural effusions. N o pneumothorax. Gaseous distention of the large bowel. Bones appear grossly intact. IMPRESSION: 1. Cardiomegaly with pulmonary vascular congestion. 2. Unchanged right hemidiaphragmatic elevation with probable trace pleural effusions and bibasilar de nsities/atelectasis. ACT 112: Negative or not required by law. The above report was generated using voice recognition software. It may contain grammatical, syntax o r spelling errors. Electronically signed by: Toby Whitaker M.D. 12/29/2024 9:33 AM
[2024-12-29] MEDS: FUROSEMIDE 20 MG TAB PO ONE ×3 (10:57→18:21)
[2024-12-29] MEDS: cefTRIAXone SODIUM 2,000 MG/50 ML BAG IV SCH (12:30)
[2024-12-29] MEDS: POTASSIUM CHLORIDE CRTAB 20 MEQ TABCR PO STA (15:20)
[2024-12-29] MEDS: POTASSIUM CHLORIDE CRTAB 20 MEQ TABCR PO ONE (18:21)
--- NOTE | 2024-12-29 20:41 | XCELERA ---
[id number] \\[id number]\[id number]
--- NOTE | 2024-12-30 08:27 | Hospitalist Progress Note ---
Date of Service December 30, 2024 Assessment & Plan (1) Influenza: (2) Pneumonia: (3) Parkinsons disease: Plan This is an 84 year old female with past medical history of Parkinson's disease, dementia, HTN, gait difficulty who presented to the ED from [facility] on 12/28 with chief complaint of cough. +Influenza A on viral testing. No leukocytosis on admission but notable WBC was 10K w/ LEFT shift on CBC. Procal 0.08. EKG w/ NSR, Given Ceftriaxone, Methylprednisolone in ER and admission for Flu/PNA given CXR w/ concerns for RIGHT basilar consolidation/atelectasis. On 2L NC at admission to maintain sats #Flu A/pneumonia IMPROVING. Isolation precautions Tamiflu reduced to 30mg BID per renal function Continues on Ceftriaxone/Doxy for superimposed bacterial infection/PNA WBC normalized, afebrile Blood cx NGTD Duonebs made prn, continue incentive spirometer, flutter valve, mucinex, hypertonic saline, vibration vest. No steroids, resolution in wheezing with lasix 40mg PO + 20mg PO x 1 on 12/29 for elevated BNP to 308 without prior for comparison, no hx CHF or echo for comparison ECHO w/o significant valvular disease/less JVD on exam. Defer ongoing diuretics but will monitor volume status/keep dry. C2V w/ no further pulmonary vascular congestion. 96% on RA ?2step prior to dc. PT/OT negro, from [facility]. Hopeful dc in AM on PO abx/Tamiflu to complete course as long as blood cx remain NGTD. Updated daughter via phone 12/29, voicemail left for today. DVT proph: Lovenox sq #Parkinson's disease Continue carbidopa 25mg levodopa 100mg . Memantine continued for hx dementia, fluoxetine for mental health Fall/Aspiration precautions, therapy consulted as above and hopefully able to dc back to [facility]. CM to follow Chronic conditions: HLD: statin continued. Notable UA w/ trace blood but no RBC --> on statin, CK checked/NOT elevated at 74. Will need f/u UA at dc DVT prophylaxis: Lovenox SQ continued Dispo: continued inpatient stay, abx/tamiflu/breathing tx as outlined. Hopeful dc 12/31 back to [facility] Voicemail for daughter Gris 12/29 (works at school, available after 345pm if needed, asked to call with any questions/concerns). Message to CM sent to f/u on PT/OT evals to ensure able to return to prior level of living at [facility] as desired. Admission and Anticipated Discharge Date Admission Date: December 28, 2024 Supervising Physician Co-Signing Physician Notes The patient was not seen by me. The chart was reviewed. Case discussed with SIS Post. Agree with assessment and plan Subjective EVal this morning , feeling much better. Less congestion, suction w/ RT, continues breathing treatment/abx. Less wheezing/resolution in pulm vascular congestion w/ diuretics. Urine slightly dark today- defer ongoing diuretics. Continue PT/OT. Better appetite/able to feed self today. Will call daughter Gris w/ update -- voicemail left. Hopeful dc in AM back to [facility]. Physical Exam 2 Physical Exam: General: 84yo female sitting up in chair, appears much improved, on room air, less cough HEENT: head atraumatic, normocephalic, mmm, trachea midline, no further significant JVD Resp: improvement in air entry bilaterally, faint bibasilar crackles but no further wheezing, on ROOM AIR CV: RRR, no pitting edema, pulses present, calves nontender GI: +BS, soft/NT : no rosas MSK/Neuro: no slurred speech/facial droop, cooperative with exam, moves all extremities, tremor stable/improved Psych: Alert to person/place/time, intermittent confusion/hx dementia at baseline Results & Data Results & Data Vital Signs (Past 12 Hours) Vital Signs Temp Pulse Pulse Resp BP BP Pulse Ox 12/30/24 07:47 69 18 91 12/30/24 07:32 63 12/30/24 03:10 36.5 C 74 18 122/65 92 12/30/24 00:10 80 18 93 12/29/24 23:00 85 12/29/24 20:30 37.1 C 94 H 22 137/72 94 O2 Del Method 12/30/24 07:47 Room Air 12/30/24 07:32 12/30/24 03:10 Room Air 12/30/24 00:10 Room Air 12/29/24 23:00 12/29/24 20:30 Room Air Laboratory Results 12/30/24 07:54 12/30/24 07:54 Mag 1.9 TSH 1.309 Diagnostic Findings Chest X-Ray 12/30/24 07:00 XR chest 2V PA/lateral CLINICAL HISTORY: f/u pulmonary vascular congestion/pna COMPARISON STUDY: Chest radiograph December 29, 2024. FINDINGS: Elevation of the right hemidiaphragm is again noted. There is no pneumothorax or pleural effusion. Bibasilar opacities favor atelectasis. There is no consolidation to suggest pneumonia. Pulmonary vascular congestion has slightly improved. There is no evidence for pulmonary edema. IMPRESSION: 1. Cardiomegaly. No evidence for pulmonary edema. 2. Bibasilar opacities which favor atelectasis. No consolidation to suggest pneumonia. ACT 112: Negative or not required by law. Electronically signed by: Marlo Haider M.D. 12/30/2024 9:50 AM ECHO - normal EF 65-70%, no regional wma, no LVH/significant valvular abnormalities. ?underlying LEE however normal est RVSP. No prior study for comparison. PG Care Time/CCT Total # of Minutes Spent Total Time Spent with Patient: Total time spent is greater than 50% in coordination of care (as documented) at patient's floor/unit and/or counseling patient: Coding Level of Care Code 64034 SUB INP/OBS CARE 3/50MIN Diagnoses Influenza J11.1 Pneumonia J18.9 Parkinsons disease G20
[2024-12-30 09:13] LABS: Albumin Globulin Ratio 1.1 (0.9-2); Albumin Level 3.6 gm/dl (3.4-5.0); BUN Creatinine Ratio 32.8 (10-20); Bilirubin,Total 0.9 mg/dl (0.2-1.0); Calcium 9.7 mg/dl (8.6-10.3); Creatinine Clr Calc Pharmacy 51.2 ml/min; Globulin 3.2 gm/dl (2.5-4.0); Hemoglobin 14.1 g/dl (12.0-16.0); Magnesium 1.9 mg/dl (1.7-2.4); Mean Corpuscular Hemoglobin 32.5 pg (25.0-34.0); Mean Corpuscular Hgb Conc 33.6 g/dL (32.0-36.0); Mean Corpuscular Volume 96.8 fL (80.0-100.0); Mean Platelet Volume 10.9 fL (9.4-12.4); Platelet Count 233 K/uL (130-400); Potassium 3.2 mmol/L (3.5-5.1); RDW Coefficient of Variation 12.6 % (11.5-14.5); RDW Standard Deviation 45.2 fL (36.4-46.3); Red Blood Count 4.34 M/uL (4.20-5.40); Total Protein 6.8 gm/dl (6.0-8.3); White Blood Count 5.73 K/ul (4.8-10.8)
[2024-12-30 09:28] LABS: Thyroid Stimulating Hormone 1.309 uIu/ml (0.300-4.500)
--- NOTE | 2024-12-30 09:51 | XRay Report ---
XR chest 2V PA/lateral CLINICAL HISTORY: f/u pulmonary vascular congestion/pna COMPARISON STUDY: Chest radiograph December 29, 2024. FINDINGS: Elevation of the right hemidiaphragm is again noted. There is no pneumothorax or pleural ef fusion. Bibasilar opacities favor atelectasis. There is no consolidation to suggest pneumonia. Pulmon porter vascular congestion has slightly improved. There is no evidence for pulmonary edema. IMPRESSION: 1. Cardiomegaly. No evidence for pulmonary edema. 2. Bibasilar opacities which favor atelectasis. No consolidation to suggest pneumonia. ACT 112: Negative or not required by law. Electronically signed by: Marlo Haider M.D. 12/30/2024 9:50 AM
[2024-12-30] MEDS: POTASSIUM CHLORIDE CRTAB 20 MEQ TABCR PO STA (10:23)
[2024-12-30] MEDS: OSELTAMIVIR PHOSPHATE SUSP 30 MG/5 ML UDP PO SCH (20:47)
[2024-12-31 06:43] LABS: BUN Creatinine Ratio 35.8 (10-20); Calcium 9.3 mg/dl (8.6-10.3); Creatinine Clr Calc Pharmacy 51.2 ml/min; Magnesium 1.8 mg/dl (1.7-2.4); Potassium 4.1 mmol/L (3.5-5.1)
--- NOTE | 2024-12-31 19:17 | Hospitalist Progress Note ---
Date of Service December 31, 2024 Assessment & Plan (1) Influenza: (2) Pneumonia: (3) Parkinsons disease: Plan This is an 84 year old female with past medical history of Parkinson's disease, dementia, HTN, gait difficulty who presented to the ED from [facility] on 12/28 with chief complaint of cough. +Influenza A on viral testing. No leukocytosis on admission but notable WBC was 10K w/ LEFT shift on CBC. Procal 0.08. EKG w/ NSR, Given Ceftriaxone, Methylprednisolone in ER and admission for Flu/PNA given CXR w/ concerns for RIGHT basilar consolidation/atelectasis. On 2L NC at admission to maintain sats #Flu A/Superimposed bacterial pneumonia Tamiflu reduced to 30mg BID per renal function Continue Ceftriaxone/Doxy for superimposed bacterial pneumonia. Switch to Augmentin and continue Doxy on discharge to complete course WBC normalized, afebrile. Blood cx NGTD Duonebs made prn, continue incentive spirometer, flutter valve, Mucinex, hypertonic saline, vibration vest No steroids, resolution in wheezing with Lasix 40mg PO + 20mg PO x 1 on 12/29 for elevated BNP to 308 without prior for comparison, no hx CHF or echo for comparison ECHO w/o significant valvular disease/less JVD on exam Defer ongoing diuretics but will monitor volume status/keep dry C2V w/ no further pulmonary vascular congestion. 96% on RA 2 step completed and no need for O2 on discharge #Parkinson's disease/Dementia/Mental Health Continue carbidopa 25mg levodopa 100mg . Memantine continued for hx dementia, fluoxetine for mental health Chronic conditions: HLD: statin continued Notable UA w/ trace blood but no RBC --> on statin, CK checked/NOT elevated at 74 Notified by RN that patient became tachycardic in 150s with activity, asymptomatic. Returned to sinus in 80s with rest. Consider Holter monitor outpatient DVT prophylaxis: Lovenox SQ continued Dispo: Anticipate return to [facility] 01/01. Attempted to discharge patient today, however, could not get ahold of facility/daughter with enough time to set up transport. CM to schedule transport 2/12 AM Admission and Anticipated Discharge Date Admission Date: December 28, 2024 Supervising Physician Co-Signing Physician Notes Attending Attestation - Chart reviewed, care plan d/w SIS Blanton. I agree w/ the wilson components of her documentation. Tolu Echevarria MD Subjective Patient seen and evaluated at bedside. She reports feeling better. Denies dyspnea, productive cough, fever, chills, chest pain. She notes that her cough is wet but does not have any sputum production. 2 step completed without need for O2 at home. Discussed return to [facility] today, but unfortunately could not get ahold of facility/daughter until later in the day to set up transport. Anticipate discharge to [facility] 01/01/25. No additional complaints or concerns at this time. Physical Exam Physical Exam: General: No acute distress, nondiaphoretic, frail elderly female. Cardiac: Regular rate and rhythm without murmurs gallops or rubs. Pulm: Course rhonchus breath sounds throughout L>R. No respiratory distress. 92% on room air. Abdominal: Soft, nontender, nondistended. Bowel sounds present. Neuro: A&O x3 with periods of intermittent confusion secondary to baseline dementia. No focal neurological deficits. Results & Data Results & Data Vital Signs (Past 12 Hours) Vital Signs Temp Pulse Pulse Pulse Pulse Resp Resp 12/31/24 15:44 98.6 F 83 18 12/31/24 15:38 88 12/31/24 12:09 91 H 87 18 12/31/24 12:08 86 18 12/31/24 11:03 97.9 F 82 20 12/31/24 08:00 12/31/24 08:00 98.6 F 80 17 12/31/24 07:18 68 Resp BP Pulse Ox Pulse Ox Pulse Ox O2 Del Method O2 Flow Rate 12/31/24 15:44 131/77 92 Room Air 12/31/24 15:38 12/31/24 12:09 18 90 92 12/31/24 12:08 92 Room Air 12/31/24 11:03 115/75 92 Nasal Cannula 2 12/31/24 08:00 Room Air, Nasal Cannula 12/31/24 08:00 137/80 90 Room Air 12/31/24 07:18 Laboratory Results Reviewed BMP/mag PG Care Time/CCT Total # of Minutes Spent Total Time Spent with Patient: Total time spent is greater than 50% in coordination of care (as documented) at patient's floor/unit and/or counseling patient: Coding Level of Care Code 13072 SUB INP/OBS CARE 2/35MIN Diagnoses Influenza J11.1 Pneumonia J18.9 Parkinsons disease G20
--- NOTE | 2025-01-01 05:51 | Electrocardiogram Report ---
Test Reason : Blood Pressure : */* mmHG Vent. Rate : 79 BPM Atrial Rate : 79 BPM P-R Int : 142 ms QRS Dur : 82 ms QT Int : 412 ms P-R-T Axes : 46 -7 9 degrees QTcB Int : 472 ms Sinus rhythm with occasional Premature ventricular complexes Cannot rule out Anterior infarct , age undetermined Nonspecific ST abnormality Abnormal ECG When compared with ECG of 05-Oct-2024 06:15, Premature ventricular complexes are now Present Confirmed by Vitaly Rutherford ([id number]) on 01/01/2025 5:50:54 AM Referred By: Confirmed By: Vitaly Rutherford
[2025-01-01 08:14] VITALS: RESP 20; TEMP 97.7; O2SAT 96
[2025-01-01 12:00] VITALS: BP 137/72; PULSE 78
--- NOTE | 2025-01-01 13:02 | Discharge Summary ---
Discharge Summary Date of Service January 01, 2025 Principal Dx & Hospital Course #1 = Principal Diagnosis (1) Influenza: (2) Pneumonia: (3) Parkinsons disease: Plan This is an 84 year old female with past medical history of Parkinson's disease, dementia, HTN, gait difficulty who presented to the ED from [facility] on 12/28 with chief complaint of cough. +Influenza A on viral testing. No leukocytosis on admission but notable WBC was 10K w/ LEFT shift on CBC. Procal 0.08. EKG w/ NSR. Admission for Flu/PNA given CXR w/ concerns for RIGHT basilar consolidation/atelectasis. #Flu A/Superimposed bacterial pneumonia Tamiflu reduced to 30mg BID per renal function, EOT 01/02/25 Continued on Augmentin BID and Doxy BID through 01/03/25 on discharge to complete course Continue incentive spirometer, flutter valve, Mucinex ECHO w/o significant valvular disease. Defer ongoing diuretics but will monitor volume status/keep dry. Euvolemic on discharge C2V w/ no further pulmonary vascular congestion. 96% on RA 2 step completed and no need for O2 on discharge #Parkinson's disease/Dementia/Mental Health Continue carbidopa 25mg levodopa 100mg . Memantine continued for hx dementia, fluoxetine for mental health Chronic conditions: HLD: statin continued Notable UA w/ trace blood but no RBC --> on statin, CK checked/NOT elevated at 74 Of note, 2 episodes of sinus tachyarrhythmias during activity/ambulation while hospitalized. Remained asymptomatic at the time and quickly returned to normal rate NSR with rest. Could consider 2 week Holter monitor outpatient DVT prophylaxis: Lovenox SQ Dispo: Discharged back to [facility] 01/01 Notes For Next Care Provider Consider 2-week Holter monitor Medication Changes From Visit Tamiflu, Augmentin, Doxy for flu/pneumonia. Triston Martinez for cough Recommended Mucinex OTC Admission HPI Per Admitting Provider This is an 84 year old female with past medical history of Parkinson's disease, dementia, HTN, gait difficulty who presented to the ED from [facility] on 12/28 with chief complaint of cough. Patient seen and examined at bedside. Patient is poor historian at baseline. Reportedly patient was experiencing a cough over the last 7-10 days. Also per documentation there is a flu outbreak at her home. At time of encounter she was resting comfortable in bed. Due to Parkinson's, pulse ox was difficult to obtain in ED but patient was ~ 88% on room air at time of my encounter. She was given 2L of oxygen with improvement to 93%. She reports she cannot take a deep breath. While in the ED, respiratory biofire + for Flu A. CXR w/ concerning findings for pneumonia per personal review. Rocephin, Methylprednisolone, Sinemet, and Duoneb administered in ED. CBC w/o leukocytosis. Procalcitonin and BC pending. BMP w/ stable electrolytes and kidney function. Per chart, patient is a DNR/DNI. Discharge Exam General: No acute distress, nondiaphoretic, frail elderly female. Cardiac: Regular rate and rhythm without murmurs gallops or rubs. Pulm: Course rhonchus breath sounds throughout L>R, improved. No respiratory distress. 96% on room air. Abdominal: Soft, nontender, nondistended. Bowel sounds present. Neuro: A&O x3 with periods of intermittent confusion secondary to baseline dementia. No focal neurological deficits. Discharge Plan Discharge Items Patient Disposition: Personal Retirement Reason For Visit: SOB Discharge Diagnosis: Influenza A, superimposed bacterial pneumonia Condition on Discharge: Fair Activity: Resume your previous activity Non-emergency contact: Primary Care Provider Call non-emergency contact if: you have any medication questions, your symptoms worsen and you have a fever Follow-up/Referrals: Yasmine Conley MD [Primary Care Provider] - (Follow-up in 1-2 weeks) Diet: Regular Addtl Attending Provider Instructions: Jasmine, You were admitted to the hospital with Influenza A (flu) and bacterial pneumonia. This is likely the cause of your shortness of breath and intermittent need for supplemental oxygen. You were treated with Tamiflu for your flu symptoms, and antibiotics for your pneumonia infection. You will continue both Tamiflu and oral antibiotics at home to complete your treatment course. You were evaluated by PT/OT who recommended your return to your personal fpc. Your prescriptions have been sent to the [facility] pharmacy on [facility] Upon discharge from the hospital: * Continue Tamiflu x 2 additional doses (this evening 01/01/2025, and tomorrow morning 01/02/2025). This will complete a 5-day treatment course. This has been reduced to 30 mg twice daily due to your kidney function. * Continue Augmentin (oral antibiotic) twice daily through 01/03/2025. This is for treatment of your pneumonia infection. * Continue doxycycline (oral antibiotic) twice daily through 01/03/2025. This is for treatment of your pneumonia infection. * You can take Tessalon Perles twice daily as needed for cough. * You can continue to take Mucinex twice daily as needed for congestion. This is available [id number] (OTC), so no prescription is required. * You can continue to use the incentive spirometer and flutter valve provided to you in the hospital. This can help with congestion in your chest. * Follow-up with your PCP in 1-2 weeks. Please return to the hospital if you experience any of the following: Persistent fever of 100.5 F or higher, shortness of breath, difficulty breathing, chest pain, or any other symptoms concerning for you. It was a pleasure taking care of you while you were in the hospital! Pending Studies at Discharge: No Stand-Alone Forms: [facility], Smoking Cessation Skilled Items Patient informed of condition?: Yes DNR: Yes Discharge Level of Care: Other Communicable Disease: Yes (Tested positive for influenza A on 12/28/24) Discharge Prognosis: Stable Lines: None Urinary Catheter: No Medications and DC Order Prescriptions: New oseltamivir [Tamiflu] 6 mg/mL Suspension For Reconstitution 30 mg PO BID 2 Days Qty: 20 0RF benzonatate 100 mg Capsule 100 mg PO BID PRN (Reason: cough) Qty: 14 0RF amoxicillin-pot clavulanate 875-125 mg tablet 1 tab PO BID Qty: 4 0RF doxycycline hyclate 100 mg tablet 100 mg PO BID Qty: 4 0RF Continued fluoxetine 20 mg tablet 30 mg PO DAILY Qty: 135 3RF simvastatin 20 mg tablet 20 mg PO DAILY Qty: 90 3RF timolol maleate 0.5 % drops 1 drp OPB HS Qty: 15 3RF aspirin 81 mg tablet,chewable 81 mg PO DAILY Rx Instructions: Unable to verify OTC meds at this date/time. brimonidine 0.2 % drops 1 drp ophthalmic (eye) BID Calcium 600 with Vitamin D3 600 mg(1,500mg) -400 unit tablet,chewable 1 tab PO DAILY Rx Instructions: Unable to verify OTC meds at this date/time. multivitamin Tablet 1 tab PO DAILY Qty: 30 0RF Rx Instructions: Unable to verify OTC meds at this date/time. memantine 5 mg tablet 5 mg PO BID Qty: 60 5RF melatonin 3 mg capsule 3 mg PO HS PRN (Reason: Sleep) Rx Instructions: Unable to verify OTC meds at this date/time. loperamide [Imodium A-D] 2 mg tablet 2 mg PO DAILY PRN (Reason: Diarrhea) Rx Instructions: Unable to verify OTC meds at this date/time. potassium gluconate 550 mg (90 mg) tablet 550 mg PO DAILY Qty: 90 3RF Rx Instructions: Unable to verify OTC meds at this date/time. latanoprost 0.005 % drops 0 drp OPB HS Rx Instructions: Pt got both travoprost and latanoprost filled within days of each other. Unable to verify which one pt is currently using. Original Directions: 1 drop into both eyes at bedtime. travoprost [Travatan Z] 0.004 % drops 0 drp ophthalmic (eye) QPM Rx Instructions: Pt got both travoprost and latanoprost filled within days of each other. Unable to verify which one pt is currently using. Travoprost was most recently filled. Original Directions: 1 drop into eye at bedtime. carbidopa-levodopa 25-100 mg tablet 1 tab PO UD Rx Instructions: 2 tabs in the AM, then take 2 tabs in the afternoon, then take 1 tab in the evening; Discharge Orders: Discharge Order (Routine); Ordered 01/01/25 Ordered By: Adelina Blanton Admission Data Admit Date/Time: 12/28/24 14:40 Attending Provider: Tolu Echevarria Admit Provider: Tolu Hays Primary Care Provider: Yasmine Conley V. Other Providers: Tolu Hays Other Interventions: Discharge Summary Assessment (RN) Last Done: 01/01/25 11:58 Hospital Stay Data Consultations 12/28/24 14:14 ED Decision to Admit Stat Pending Results Patient Have Any Pending Studies at Discharge: No Discharge Instructions Given to Patient (Per Discharging Provider) Rikki Ferraro were admitted to the hospital with Influenza A (flu) and bacterial pneumonia. This is likely the cause of your shortness of breath and intermitten t need for supplemental oxygen. You were treated with Tamiflu for your flu symptoms, and antibiotics for your pneumonia infection. You will continue both Tamiflu and oral antibiotics at home to complete your treatment course. You were evaluated by PT/OT who recommended your return to your personal fpc. Your prescriptions have been sent to the [facility] pharmacy on [facility] Upon discharge from the hospital: * Continue Tamiflu x 2 additional doses (this evening 01/01/2025, and tomorrow morning 01/02/2025). This will complete a 5-day treatment course. This has been reduced to 30 mg twice daily due to your kidney function. * Continue Augmentin (oral antibiotic) twice daily through 01/03/2025. This is for treatment of your pneumonia infection. * Continue doxycycline (oral antibiotic) twice daily through 01/03/2025. This is for treatment of your pneumonia infection. * You can take Tessalon Perles twice daily as needed for cough. * You can continue to take Mucinex twice daily as needed for congestion. This is available [id number]-fgn-hdripkq (OTC), so no prescription is required. * You can continue to use the incentive spirometer and flutter valve provided to you in the hospital. This can help with congestion in your chest. * Follow-up with your PCP in 1-2 weeks. Please return to the hospital if you experience any of the following: Persistent fever of 100.5 F or higher, shortness of breath, difficulty breathing, chest pain, or any other symptoms concerning for you. It was a pleasure taking care of you while you were in the hospital! Supervising Physician Co-Signing Physician Notes Attending Attestation and Discharge Note: Chart reviewed, discharge care plan d/w SIS Blanton. I agree w/ the wilson components of her discharge documentation. Of note - I did not perform a bedside visit or physical exam on day of discharge. 84yo female with h/o Parkinson's disease, dementia, and HTN - resident of [facility] - presented with cough & flu-like symptoms. At time of ER presentation had mild hypoxia (upper 80s in RA) - improved with NC O2. Admission cxr with right basilar pneumonia and BioFire testing was + for fluA. While hospitalized received Tamiflu & supportive care for her influenza. Received IV antibiotic therapy for her suspected RLL bacterial superinfection/pneumonia. O2 was weaned off prior to d/c. Will complete a course of Tamiflu as well as augmentin/doxy upon return to [place]. Of note - patient incidentally noted to have at least 2 brief runs (<1 minute) of tachy-arrhythmia while hospitalized. Review of monitor showed that the tachy-arrhythmia could have been brief runs of a.flutter vs PAT vs other. By report patient had no symptoms from such. Recommend 2-week Holter monitor as outpatient for definitive diagnosis and Rx. Of note - echo this admission was normal with EF 65-70% and normal valve function. Tolu Echevarria MD Total Time Total Time Spent Total Time Spent (In Minutes): Greater than 30 minutes spent completing this discharge process including direct patient care, medication reconciliation, documentation, review of labs and images, and coordination of care. Coding Level of Care Code 75206 INP/OBS DISCH >30 MIN Diagnoses Influenza J11.1 Pneumonia J18.9 Parkinsons disease G20
[2025-01-01] MEDS ORDERED: DOXYCYCLINE HYCLATE 100 MG CAP PO SCH (21:00)
== END 2025-01-01 13:05 | disposition home or self-care (01) | DRG 195 ==
LOC: ED 11:26 → SUATTDRO 14:40 → 2W 14:40
DX: I10 Essential (primary) hypertension; F03.90 Unspecified dementia, unspecified severity, without behavioral disturbance, psychotic disturbance, mood disturbance, and anxiety; H40.9 Unspecified glaucoma; J15.9 Unspecified bacterial pneumonia; G20.C Parkinsonism, unspecified; Z79.82 Long term (current) use of aspirin; J10.08 Influenza due to other identified influenza virus with other specified pneumonia; Z66 Do not resuscitate